=== PATIENT | female | born 1995 | race Caucasian/White ===

== ENCOUNTER 2019-11-06 06:58 | Inpatient (IN) | payer MEDICAID ==
[~2019-11-06] VITALS: Ht 172.7 cm; Wt 140.6 kg
[2019-11-06] MEDS ORDERED: LABETALOL 5MG/ML SYR 20 MG/4 ML SYRINGE IV PRN (11:00)
[2019-11-06] MEDS ORDERED: ONDANSETRON HCL 4MG/2ML INJ IV PRN ×2 (11:00→11:30)
[2019-11-06] MEDS ORDERED: MEPERIDINE HCL/PF 25MG/ML CPJ IV PRN (11:00)
[2019-11-06] MEDS ORDERED: HYDROMORPHONE HCL/PF 2MG/ML CPJ IV PRN (11:30)
[2019-11-06] MEDS: HYDROMORPHONE HCL/PF 2MG/ML CPJ IV PRN ×4 (11:40→13:25)
[2019-11-06 14:00] LABS: UCG SCREEN NEGATIVE
[2019-11-06] MEDS: SODIUM CHLORIDE 0.45% 1,000 ML IV SCH (15:00)
[2019-11-06 16:30] VITALS: BP 122/79
[2019-11-06 17:13] VITALS: BP 137/86
[2019-11-06] MEDS: KETOROLAC 30MG/ML VIAL IV SCH ×2 (17:54→21:21)
[2019-11-06 20:00] VITALS: BP 126/80
[2019-11-07] VITALS: BP 119/70
[2019-11-07 04:00] VITALS: BP 112/70
[2019-11-07] MEDS: KETOROLAC 30MG/ML VIAL IV SCH ×2 (04:06→10:37)
[2019-11-07] MEDS: SODIUM CHLORIDE 0.45% 1,000 ML IV SCH ×2 (04:06→10:41)
[2019-11-07 08:00] VITALS: BP 101/60
[2019-11-07 12:00] VITALS: BP 116/70
[2019-11-07 12:19] VITALS: BP_SYST 116; BP_SYST 117; BP_DIAS 70; BP_DIAS 74
[2019-11-07 16:00] VITALS: BP 117/74
== END 2019-11-07 16:57 | disposition home or self-care (01) | DRG 263 ==
LOC: OR 06:58 → 6EST 06:59
PROVIDERS: ADMIT Specialist; ATTEND Specialist
PROC: 0FT44ZZ Resection of Gallbladder, Percutaneous Endoscopic Approach (ICD-10-PCS; principal; 2019-11-06)
PROC: 8E0W4CZ Robotic Assisted Procedure of Trunk Region, Percutaneous Endoscopic Approach (ICD-10-PCS; 2019-11-06)
DX: K80.10 Calculus of gallbladder with chronic cholecystitis without obstruction (principal)
CPT/HCPCS: 81025; 88304; J1170; J1885